=== PATIENT | male | born 1935 | race Caucasian/White ===

== ENCOUNTER 2017-06-17 12:44 | Emergency (ER) | payer OTHER, BC ==
--- NOTE | 2017-06-17 12:55 | PDOC ---
History of Present Illness <Nicolasa Rosario - Last Filed: 06/17/17 14:32> - General History Source: Patient Exam Limitations: No Limitations - History of Present Illness Initial Comments: 06/17/17 14:37 81 year old male, with significant past medical history of Lupus (currently not receiving treatment) and GERD, who presents to the emergency room today complaining of 2 weeks of atraumatic bilateral shoulder pain that is worse with taking a deep breath. He describes the pain as constant, sharp, and stabbing that progressively worsens throughout the day. He notes that the pain is nonexertional and unrelated to movement of the shoulders. He notes that this pain is similar to pain that he has experienced in the past with Lupus flares, however, he has not had a flare in over 3 years. Denies chest pain, SOB, cough. Denies fever, chills, nausea, vomiting Allergies: NKA PMD: Dr. Layton <Mikki Santiago - Last Filed: 06/17/17 14:39> - General Chief Complaint: Pain Stated Complaint: NECK, SHOULDER PAINS Time Seen by Provider: 06/17/17 12:55 Past History - Past Medical History COPD: No Diabetes: No GI Disorders: Yes (GERD) - Suicide/Smoking/Psychosocial Hx Smoking Status: No Smoking History: Former smoker Have you smoked in the past 12 months: No Number of Cigarettes Smoked Daily: 0 Information on smoking cessation initiated: No Hx Alcohol Use: (occasional) <Nicolasa Rosario - Last Filed: 06/17/17 14:32> <Mikki Santiago - Last Filed: 06/17/17 14:39> - Past Medical History Allergies/Adverse Reactions: Allergies Allergy/AdvReac Type Severity Reaction Status Date / Time No Known Allergies Allergy Verified 06/17/17 12:45 Home Medications: Ambulatory Orders Acetaminophen [Tylenol -] 650 mg PO ASDIR 06/17/17 Hydroxyurea [Droxia] 250 mg PO ASDIR 06/17/17 Hydroxyurea [Hydrea] 500 mg PO ASDIR 06/17/17 Ibuprofen 400 mg PO ASDIR 06/17/17 Omeprazole 40 mg PO DAILY 06/17/17 Review of Systems - Review of Systems Able to Perform ROS?: Yes Comments:: 06/17/17 14:37 GENERAL/CONSTITUTIONAL: No fever or chills. No weakness. HEAD, EYES, EARS, NOSE AND THROAT: No change in vision. No ear pain or discharge. No sore throat. GASTROINTESTINAL: No nausea, vomiting, diarrhea or constipation. GENITOURINARY: No dysuria, frequency, or change in urination. CARDIOVASCULAR: No chest pain or shortness of breath. RESPIRATORY: No cough, wheezing, or hemoptysis. MUSCULOSKELETAL: +bilateral shoulder pain x2 weeks. No back pain. SKIN: No rash NEUROLOGIC: No headache, vertigo, loss of consciousness, or change in strength/ sensation. ENDOCRINE: No increased thirst. No abnormal weight change. HEMATOLOGIC/LYMPHATIC: No anemia, easy bleeding, or history of blood clots. ALLERGIC/IMMUNOLOGIC: No hives or skin allergy. <Mikki Santiago - Last Filed: 06/17/17 14:39> *Physical Exam - Vital Signs Last Vital Signs Temp Pulse Resp BP Pulse Ox 97.9 F 72 18 181/94 99 06/17/17 12:44 06/17/17 12:44 06/17/17 12:44 06/17/17 12:44 06/17/17 12:44 <Nicolasa Rosario - Last Filed: 06/17/17 14:32> - Vital Signs Last Vital Signs Temp Pulse Resp BP Pulse Ox 97.9 F 72 18 181/94 99 06/17/17 12:44 06/17/17 12:44 06/17/17 12:44 06/17/17 12:44 06/17/17 12:44 - Physical Exam Comments: 06/17/17 14:38 GENERAL: Awake, alert, and fully oriented, in no acute distress HEAD: No signs of trauma EYES: PERRLA, EOMI, sclera anicteric, conjunctiva clear ENT: Auricles normal inspection, hearing grossly normal, nares patent, oropharynx clear without exudates. Moist mucosa NECK: Normal ROM, supple, no lymphadenopathy, JVD, or masses LUNGS: Breath sounds equal, clear to auscultation bilaterally. No wheezes, and no crackles HEART: Regular rate and rhythm, normal S1 and S2, no murmurs, rubs or gallops ABDOMEN: Soft, nontender, normoactive bowel sounds. No guarding, no rebound. No masses EXTREMITIES: Full ROM of the upper extremities bilaterally. No bony deformities. no edema. No clubbing or cyanosis. No cords, erythema, or tenderness NEUROLOGICAL: Cranial nerves II through XII grossly intact. Normal speech, normal gait SKIN: Warm, Dry, normal turgor, no rashes or lesions noted. <Mikki Santiago - Last Filed: 06/17/17 14:39> ED Treatment Course - LABORATORY CBC & Chemistry Diagram: 06/17/17 13:20 06/17/17 13:20 <Nicolasa Rosario - Last Filed: 06/17/17 14:32> - LABORATORY CBC & Chemistry Diagram: 06/17/17 13:20 06/17/17 13:20 - ADDITIONAL ORDERS Additional order review: Laboratory Results 06/17/17 06/17/17 13:20 13:20 Sodium 132 L Potassium 4.8 Chloride 113 H D Carbon Dioxide 29 H Anion Gap -10 L BUN 19 H Creatinine 0.8 Creat Clearance w eGFR > 60 Random Glucose 102 D Calcium 8.0 L Total Bilirubin 0.4 AST 20 ALT 24 Alkaline Phosphatase 82 D Creatine Kinase 78 Troponin I < 0.03 L Total Protein 6.2 L Albumin 3.5 06/17/17 13:20 RBC 3.89 L MCV 95.4 MCHC 33.9 RDW 11.9 MPV 8.6 Neutrophils % 75.7 Lymphocytes % 13.4 D Monocytes % 9.8 Eosinophils % 0.9 Basophils % 0.2 <Mikki Santiago - Last Filed: 06/17/17 14:39> Medical Decision Making - Medical Decision Making 06/17/17 14:32 Pt presents to the ED complaining of bilateral shoulder pain that has been constant for two weeks. No trauma, no signs of infection, no relation to movement of the shoulders. EKG and cardiac enzymes checked to rule out ACS and are negative. <Nicolasa Rosario - Last Filed: 06/17/17 14:32> *DC/Admit/Observation/Transfer <Nicolasa Rosario - Last Filed: 06/17/17 14:32> - Attestations Scribe Attestion: 06/17/17 14:38 Documentation prepared by LAKHWINDER Lawrence, acting as medical information specialist for Nicolasa Rosario MD. <Mikki Santiago - Last Filed: 06/17/17 14:39> Diagnosis at time of Disposition: Shoulder pain Qualifiers: Chronicity: acute Laterality: bilateral Qualified Code(s): M25.511 - Pain in right shoulder - Discharge Dispostion Disposition: HOME Condition at time of disposition: Good - Referrals Referrals: Hector Layton MD [Primary Care Provider] - - Patient Instructions Printed Discharge Instructions: DI for Shoulder Pain Additional Instructions: return to the ED for severe chest pain or shortness of breath, severe shoulder pain, pain with fever, new or changing symptoms. This may be caused by a new flare of your lupus and your need to be evaluated by Dr. Layton. - Post Discharge Activity
[2017-06-17 13:00] VITALS: TEMP 97.9; BMI 22.3
[2017-06-17 13:57] LABS: ALBUMIN 3.5 g/dl (3.5-5.0); ALK PHOS 82 U/L (32-92); ANION GAP -10 (8-16); BILIRUBIN,TOTAL 0.4 mg/dl (0.2-1.0); CO2 29 mmol/L (22-28); CREATININE 0.8 mg/dl (0.6-1.3); GLUCOSE,RANDOM 102 mg/dl (74-106); SGOT/AST 20 U/L (10-42); SGPT/ALT 24 U/L (10-40); TOT PROT 6.2 g/dl (6.4-8.3)
[2017-06-17 13:58] LABS: CPK 78 IU/L (39-308)
[2017-06-17 14:02] LABS: BASOPHIL 0.2 % (0-2.0); EOSINOPHIL 0.9 % (0-4.5); MCH 32.4 pg (25.7-33.7); MCHC 33.9 g/dl (32.0-35.9); MEAN CELL VOLUME 95.4 fl (80-96); MEAN PLT VOLUME 8.6 fl (7.5-11.1); NEUTROPHILS 75.7 % (42.8-82.8); PLATELET COUNT 617 K/MM3 (134-434); RDW 11.9 % (11.9-15.9)
[2017-06-17 14:28] LABS: TROPONIN I (DFP) < 0.03 ng/ml (0.03-0.50)
[2017-06-17 14:50] VITALS: BP 139/74; PULSE 78
--- NOTE | 2017-06-18 15:56 | EKG ---
Test Reason : Blood Pressure : / mmHG Vent. Rate : 061 BPM Atrial Rate : 061 BPM P-R Int : 164 ms QRS Dur : 094 ms QT Int : 432 ms P-R-T Axes : 066 026 024 degrees QTc Int : 434 ms NORMAL SINUS RHYTHM MINIMAL VOLTAGE CRITERIA FOR LVH, MAY BE NORMAL VARIANT OF INJURY ABNORMAL ECG WHEN COMPARED WITH ECG OF 13-FEB-2017 11:05, PREMATURE ATRIAL COMPLEXES ARE NO LONGER PRESENT ST ELEVATION NOW PRESENT IN INFERIOR LEADS NON-SPECIFIC CHANGE IN ST SEGMENT IN LATERAL LEADS NONSPECIFIC T WAVE ABNORMALITY HAS REPLACED INVERTED T WAVES IN LATERAL LEADS CLINICAL CORRELATION IS RECOMMENDED REPEAT EKG Confirmed by DEBBI LOPEZ MD ([id number]) on 06/18/2017 3:55:45 PM Referred By: MD JARVIS Confirmed By:DEBBI LOPEZ MD
== END 2017-06-17 15:00 | disposition home or self-care (01) ==
LOC: FER 12:44
DX: M25.511 Pain in right shoulder (principal); M32.9 Systemic lupus erythematosus, unspecified; K21.9 Gastro-esophageal reflux disease without esophagitis; Z87.891 Personal history of nicotine dependence
CPT/HCPCS: 36415; 80053; 82550; 84484; 85025; 93005; 99285-25

== ENCOUNTER 2022-02-07 08:22 | Day surgery (SDC) | payer OTHER, BC ==
[2022-01-31 16:14] VITALS: BMI 21.5
[2022-02-07] MEDS ORDERED: BSS (NA/CA/MG/K) BALANCED SALT SOLUTION OPHTH SOLN 15 ML BOTTLE ONE (08:57)
[2022-02-07] MEDS ORDERED: NEO/POLYMYX B SULF/DEXAMETH OPHTHALMIC 5ML BOTTLE ONE (08:57)
[2022-02-07] MEDS ORDERED: TETRACAINE 0.5% OPHTH SOLN 2 ML BOTTLE ONE (08:57)
[2022-02-07] MEDS ORDERED: CARBACHOL 0.01% INTRA-OCULAR 1.5 ML VIAL ONE (08:57)
[2022-02-07] MEDS: PHENYLEPHRINE 2.5% OPHTH SOLN 15 ML BOTTLE ONE ×3 (09:25→09:35)
[2022-02-07] MEDS: CIPROFLOXACIN 0.3% EYE DROPS 5 ML BOTTLE ONE ×3 (09:25→09:35)
[2022-02-07] MEDS: TROPICAMIDE 1% OPHTH SOLN 15 ML BOTTLE ONE ×3 (09:25→09:35)
[2022-02-07] MEDS: CYCLOPENTOLATE 2% OPHTH SOLN 2 ML BOTTLE ONE ×3 (09:25→09:35)
[2022-02-07] MEDS ORDERED: MIDAZOLAM HCL 2 MG/2 ML SINGLE DOSE VIAL ONE (10:30)
[2022-02-07 11:07] VITALS: TEMP 97.6
[2022-02-07 11:51] VITALS: BP 116/74; PULSE 64
== END 2022-02-07 11:35 | disposition home or self-care (01) ==
LOC: FASU 08:22
PROVIDERS: ATTEND Ophthalmology
PROC: 08RK3JZ Replacement of Left Lens with Synthetic Substitute, Percutaneous Approach (ICD-10-PCS; principal; 2022-02-07 10:38)
DX: H26.8 Other specified cataract (principal)
CPT/HCPCS: 66984; V2632

== ENCOUNTER 2022-07-13 07:08 | Inpatient (IN) | payer OTHER, BC ==
[2022-07-13] MEDS ORDERED: SODIUM CHLORIDE 1,000 ML IV STA (07:31)
[2022-07-13] MEDS ORDERED: ONDANSETRON 4 MG/2 ML VIAL IVPUSH ONE (07:31)
[2022-07-13] MEDS ORDERED: MECLIZINE HCL 25 MG TABLET (FP) PO ONE ×2 (07:32→09:26)
[2022-07-13] MEDS ORDERED: ONDANSETRON 4 MG/2 ML VIAL ONE (07:34)
[2022-07-13] MEDS ORDERED: MECLIZINE HCL 25 MG TABLET (FP) ONE ×3 (07:35→09:27)
[2022-07-13 08:21] LABS: HEMATOCRIT 35.8 % (35.4-49); HEMOGLOBIN 12.2 G/dL (11.7-16.9); MCH 33.6 pg (25.7-33.7); MCHC 34.1 g/dl (32.0-35.9); MEAN CELL VOLUME 98.3 fl (80-96); PLATELET COUNT 543.2 10^3/uL (134-434); RBC 3.64 10^6/uL (4.00-5.60); RDW 12.9 % (11.9-15.9); WHITE BLOOD COUNT 9.5 10^3/uL (4.0-10.8)
[2022-07-13 08:23] LABS: ALBUMIN 3.8 g/dl (3.4-5.0); BILIRUBIN,TOTAL 0.9 mg/dl (0.2-1); CALCIUM 8.8 mg/dl (8.5-10); CREATININE 0.7 mg/dl (0.55-1.3); TOT PROT 6.3 g/dl (6.4-8.2)
[2022-07-13 09:05] LABS: PLATELET ESTIMATE INCREASED
[2022-07-13] MEDS ORDERED: LORazepam 2 MG/ML SDV VIAL IVPUSH STA (09:25)
[2022-07-13] MEDS ORDERED: SODIUM CHLORIDE 1,000 ML IV SCH (17:45)
[2022-07-13] MEDS ORDERED: LORATADINE 10 MG TABLET ONE (20:58)
[2022-07-13] MEDS: LORATADINE 10 MG TABLET PO SCH (21:01)
[2022-07-14] MEDS: FLUTICASONE PROP 0.05% 16 GM NASAL SPRAY NS SCH ×3 (08:03→22:53)
[2022-07-14 10:41] LABS: HEMATOCRIT 31.6 % (35.4-49); HEMOGLOBIN 10.9 GM/dL (11.7-16.9); MCH 33.6 pg (25.7-33.7); MCHC 34.7 g/dl (32.0-35.9); MEAN CELL VOLUME 96.9 fl (80-96); MEAN PLT VOLUME 8.4 fl (7.5-11.1); PLATELET COUNT 507 10^3/uL (134-434); RBC 3.26 M/mm3 (4.00-5.60); WHITE BLOOD COUNT 10.4 K/mm3 (4.0-10.0)
[2022-07-14] MEDS: amLODIPine BESYLATE 2.5 MG TABLET (FP) PO SCH (10:50)
[2022-07-14] MEDS: ENOXAPARIN NA (PORCINE) 40 MG/0.4 ML DISP.SYRIN SQ SCH (10:51)
[2022-07-14] MEDS: LORATADINE 10 MG TABLET PO SCH (10:51)
[2022-07-14 12:22] LABS: CALCIUM 8.6 mg/dL (8.5-10.1)
[2022-07-14 12:25] LABS: MAGNESIUM 2.2 mg/dL (1.8-2.4)
[2022-07-14 12:26] LABS: CREATININE 0.7 mg/dL (0.55-1.3)
[2022-07-14 12:28] LABS: PHOSPHOROUS 2.6 mg/dL (2.5-4.9)
[2022-07-14 12:33] LABS: BLOOD UREA NITROGEN 18.2 mg/dL (7-18)
[2022-07-14] MEDS ORDERED: ONDANSETRON 4 MG/2 ML VIAL IVPUSH PRN (12:34)
[2022-07-15] MEDS: MECLIZINE HCL 12.5 MG TABLET PO PRN ×2 (01:02→22:47)
[2022-07-15] MEDS: amLODIPine BESYLATE 2.5 MG TABLET (FP) PO SCH ×2 (01:35→09:47)
[2022-07-15] MEDS ORDERED: ACETAMINOPHEN 325 MG TABLET (FP) PO ONE (05:55)
[2022-07-15 08:13] LABS: HEMATOCRIT 32.5 % (35.4-49); HEMOGLOBIN 11.2 GM/dL (11.7-16.9); MCHC 34.4 g/dl (32.0-35.9); MEAN CELL VOLUME 95.9 fl (80-96); MEAN PLT VOLUME 7.9 fl (7.5-11.1); PLATELET COUNT 520 10^3/uL (134-434); RBC 3.39 M/mm3 (4.00-5.60); RDW 12.8 % (11.9-15.9); WHITE BLOOD COUNT 11.9 K/mm3 (4.0-10.0)
[2022-07-15 08:55] LABS: CALCIUM 8.9 mg/dL (8.5-10.1)
[2022-07-15 08:56] LABS: BLOOD UREA NITROGEN 14.8 mg/dL (7-18); MAGNESIUM 2.2 mg/dL (1.8-2.4)
[2022-07-15 08:59] LABS: CREATININE 0.7 mg/dL (0.55-1.3)
[2022-07-15] MEDS: LORATADINE 10 MG TABLET PO SCH (09:46)
[2022-07-15] MEDS: FLUTICASONE PROP 0.05% 16 GM NASAL SPRAY NS SCH ×2 (09:46→22:47)
[2022-07-15] MEDS: ENOXAPARIN NA (PORCINE) 40 MG/0.4 ML DISP.SYRIN SQ SCH (09:47)
[2022-07-15] MEDS: POLYETHYLENE GLYCOL (HEALTHYLAX) 3350 17 GM PACKET PO SCH (12:18)
[2022-07-16] MEDS: amLODIPine BESYLATE 2.5 MG TABLET (FP) PO SCH (10:09)
[2022-07-16] MEDS: LORATADINE 10 MG TABLET PO SCH (10:09)
[2022-07-16] MEDS: MECLIZINE HCL 12.5 MG TABLET PO PRN (10:10)
[2022-07-16] MEDS: POLYETHYLENE GLYCOL (HEALTHYLAX) 3350 17 GM PACKET PO SCH (10:10)
[2022-07-16] MEDS: ENOXAPARIN NA (PORCINE) 40 MG/0.4 ML DISP.SYRIN SQ SCH (10:10)
[2022-07-16] MEDS: FLUTICASONE PROP 0.05% 16 GM NASAL SPRAY NS SCH ×2 (10:10→21:58)
[2022-07-16 10:15] LABS: BASO % 0.4 % (0-2.0); EOS % 0.8 % (0-4.5); HEMATOCRIT 35.7 % (35.4-49); HEMOGLOBIN 12.2 GM/dL (11.7-16.9); LYMPH % 18.3 % (8-40); MCH 32.9 pg (25.7-33.7); MCHC 34.3 g/dl (32.0-35.9); MEAN CELL VOLUME 95.9 fl (80-96); MEAN PLT VOLUME 8.1 fl (7.5-11.1); MONO % 7.7 % (3.8-10.2); NEUT % 72.8 % (42.8-82.8); PLATELET COUNT 648 10^3/uL (134-434); RBC 3.73 M/mm3 (4.00-5.60); RDW 12.9 % (11.9-15.9); WHITE BLOOD COUNT 13.3 K/mm3 (4.0-10.0)
[2022-07-16 10:47] LABS: CHOLESTEROL 152 mg/dL (50-200); TRIGLYCERIDES 118 mg/dL (0-150)
[2022-07-16 10:48] LABS: LDL CHOLESTEROL (ONLY SJRH) 87 mg/dL (5-100)
[2022-07-16 10:50] LABS: HDL CHOLESTEROL 53 mg/dL (40-60)
[2022-07-16 11:05] LABS: CALCIUM 8.9 mg/dL (8.5-10.1)
[2022-07-16 11:06] LABS: ALBUMIN 3.2 g/dl (3.4-5.0); BLOOD UREA NITROGEN 12.8 mg/dL (7-18); MAGNESIUM 2.2 mg/dL (1.8-2.4)
[2022-07-16 11:09] LABS: CREATININE 0.8 mg/dL (0.55-1.3); PHOSPHOROUS 3.3 mg/dL (2.5-4.9)
[2022-07-16 11:11] LABS: BILIRUBIN,TOTAL 0.6 mg/dL (0.2-1); TOT PROT 5.7 g/dl (6.4-8.2)
[2022-07-16] MEDS: SENNOSIDES 8.6MG TABLET (FP) PO SCH (21:58)
[2022-07-17 09:14] LABS: HEMATOCRIT 37.5 % (35.4-49); HEMOGLOBIN 12.7 GM/dL (11.7-16.9); MCHC 33.8 g/dl (32.0-35.9); MEAN CELL VOLUME 97.8 fl (80-96); PLATELET COUNT 670 10^3/uL (134-434); RBC 3.84 M/mm3 (4.00-5.60); RDW 13.2 % (11.9-15.9); WHITE BLOOD COUNT 17.3 K/mm3 (4.0-10.0)
[2022-07-17 09:36] LABS: CALCIUM 9.3 mg/dL (8.5-10.1)
[2022-07-17 09:37] LABS: ALBUMIN 3.3 g/dl (3.4-5.0); BLOOD UREA NITROGEN 19.4 mg/dL (7-18); MAGNESIUM 2.5 mg/dL (1.8-2.4)
[2022-07-17 09:39] LABS: CREATININE 0.9 mg/dL (0.55-1.3)
[2022-07-17 09:40] LABS: PHOSPHOROUS 4.3 mg/dL (2.5-4.9)
[2022-07-17 09:41] LABS: BILIRUBIN,TOTAL 0.6 mg/dL (0.2-1); TOT PROT 5.8 g/dl (6.4-8.2)
[2022-07-17] MEDS: amLODIPine BESYLATE 2.5 MG TABLET (FP) PO SCH ×2 (10:49→10:56)
[2022-07-17] MEDS: POLYETHYLENE GLYCOL (HEALTHYLAX) 3350 17 GM PACKET PO SCH ×2 (10:50→10:56)
[2022-07-17 11:41] LABS: ANISOCYTOSIS 0; HELMET CELLS 0; HOWELL-JOLLY BODIES 0; MACROCYTOSIS 0; OVALOCYTE 0; ROULEAU 0; SICKELED CELLS 0; TARGET CELLS 0; TEAR DROP CELLS 0; TOXIC GRANULATION 0
[2022-07-17] MEDS ORDERED: DEXTROSE 50%-WATER - 25 GM/50 ML VIAL IVPUSH ONE (12:15)
[2022-07-17] MEDS ORDERED: DEXTROSE 50%-WATER 25 GM/50 ML DISP.SYRIN IVPUSH ONE (12:15)
[2022-07-17] MEDS ORDERED: INSULIN REGULAR HUMAN 100 UNITS/ML *VIAL IVPUSH ONE (12:30)
[2022-07-17] MEDS ORDERED: SODIUM ZIRCONIUM CYCLOSILICATE (LOKELMA) 5 GM PACKET PO ONE (12:30)
[2022-07-17] MEDS: SENNOSIDES 8.6MG TABLET (FP) PO SCH (21:56)
[2022-07-18 09:49] LABS: HEMATOCRIT 35.9 % (35.4-49); HEMOGLOBIN 12.1 GM/dL (11.7-16.9); MCH 32.9 pg (25.7-33.7); MCHC 33.8 g/dl (32.0-35.9); MEAN CELL VOLUME 97.2 fl (80-96); PLATELET COUNT 645 10^3/uL (134-434); RBC 3.69 M/mm3 (4.00-5.60); RDW 13.3 % (11.9-15.9); WHITE BLOOD COUNT 16.8 K/mm3 (4.0-10.0)
[2022-07-18] MEDS: POLYETHYLENE GLYCOL (HEALTHYLAX) 3350 17 GM PACKET PO SCH (09:55)
[2022-07-18] MEDS: amLODIPine BESYLATE 2.5 MG TABLET (FP) PO SCH (09:55)
[2022-07-18 10:05] LABS: ALBUMIN 3.3 g/dl (3.4-5.0); CALCIUM 8.9 mg/dL (8.5-10.1); MAGNESIUM 2.4 mg/dL (1.8-2.4)
[2022-07-18 10:06] LABS: BLOOD UREA NITROGEN 21.2 mg/dL (7-18)
[2022-07-18 10:08] LABS: CREATININE 0.8 mg/dL (0.55-1.3); PHOSPHOROUS 3.5 mg/dL (2.5-4.9)
[2022-07-18 10:10] LABS: BILIRUBIN,TOTAL 0.7 mg/dL (0.2-1); TOT PROT 5.8 g/dl (6.4-8.2)
[2022-07-18 11:36] LABS: ANISOCYTOSIS 0; HELMET CELLS 0; HOWELL-JOLLY BODIES 0; MACROCYTOSIS 0; OVALOCYTE 0; ROULEAU 0; SICKELED CELLS 0; TARGET CELLS 0; TEAR DROP CELLS 0; TOXIC GRANULATION 0
[2022-07-18 16:46] LABS: EPI CELLS 1 /uL (0-25.1); HYALINE CASTS 0 /uL (0-3.1); URINE APPEARANCE CLOUDY; URINE BACTERIA >9,000 /uL (0-1359); URINE BILIRUBIN NEGATIVE (NEGATIVE); URINE COLOR YELLOW; URINE GLUCOSE (UA) NEGATIVE (NEGATIVE); URINE KETONE NEGATIVE (NEGATIVE); URINE LEUK ESTERASE 3+ (NEGATIVE); URINE NITRITE NEGATIVE (NEGATIVE); URINE PROTEIN TRACE (NEGATIVE); URINE RBC 80 /uL (0-23.9); URINE WBC 2943 /uL (0-25.8)
[2022-07-18] MEDS: SENNOSIDES 8.6MG TABLET (FP) PO SCH (21:42)
[2022-07-19] MEDS ORDERED: ARTIFICIAL TEARS (POLYVINYL ALCOHOL) OPTH DROPS OU ONE (01:18)
[2022-07-19] MEDS ORDERED: MELATONIN 5 MG TABLETS PO ONE (01:45)
[2022-07-19 09:29] LABS: HEMATOCRIT 36.3 % (35.4-49); HEMOGLOBIN 12.3 GM/dL (11.7-16.9); MCH 32.9 pg (25.7-33.7); MCHC 33.8 g/dl (32.0-35.9); MEAN CELL VOLUME 97.3 fl (80-96); MEAN PLT VOLUME 8.3 fl (7.5-11.1); PLATELET COUNT 609 10^3/uL (134-434); RBC 3.73 M/mm3 (4.00-5.60); RDW 13.2 % (11.9-15.9); WHITE BLOOD COUNT 16.1 K/mm3 (4.0-10.0)
[2022-07-19 10:03] LABS: ALBUMIN 3.2 g/dl (3.4-5.0); BLOOD UREA NITROGEN 21.3 mg/dL (7-18); MAGNESIUM 2.4 mg/dL (1.8-2.4)
[2022-07-19 10:05] LABS: CREATININE 0.8 mg/dL (0.55-1.3)
[2022-07-19 10:06] LABS: PHOSPHOROUS 3.7 mg/dL (2.5-4.9)
[2022-07-19 10:07] LABS: BILIRUBIN,TOTAL 0.6 mg/dL (0.2-1); TOT PROT 5.9 g/dl (6.4-8.2)
[2022-07-19 10:47] LABS: ANISOCYTOSIS 0; HELMET CELLS 0; HOWELL-JOLLY BODIES 0; MACROCYTOSIS 0; OVALOCYTE 0; ROULEAU 0; SICKELED CELLS 0; TARGET CELLS 0; TEAR DROP CELLS 0; TOXIC GRANULATION 0
[2022-07-19] MEDS: POLYETHYLENE GLYCOL (HEALTHYLAX) 3350 17 GM PACKET PO SCH (11:13)
[2022-07-19] MEDS: amLODIPine BESYLATE 2.5 MG TABLET (FP) PO SCH (11:13)
[2022-07-19] MEDS: CEFTRIAXONE 1 GM in DEXTROSE 5%-WATER - 50 ML IVPB SCH (19:38)
[2022-07-19] MEDS: SENNOSIDES 8.6MG TABLET (FP) PO SCH (21:21)
[2022-07-20 10:40] LABS: HEMATOCRIT 37.2 % (35.4-49); HEMOGLOBIN 12.5 GM/dL (11.7-16.9); MCH 32.7 pg (25.7-33.7); MCHC 33.6 g/dl (32.0-35.9); MEAN CELL VOLUME 97.4 fl (80-96); MEAN PLT VOLUME 8.4 fl (7.5-11.1); PLATELET COUNT 678 10^3/uL (134-434); RBC 3.82 M/mm3 (4.00-5.60); RDW 12.8 % (11.9-15.9); WHITE BLOOD COUNT 17.1 K/mm3 (4.0-10.0)
[2022-07-20 11:20] LABS: ALBUMIN 3.5 g/dl (3.4-5.0); BLOOD UREA NITROGEN 21.5 mg/dL (7-18); CALCIUM 8.9 mg/dL (8.5-10.1)
[2022-07-20 11:21] LABS: MAGNESIUM 2.4 mg/dL (1.8-2.4)
[2022-07-20 11:23] LABS: BILIRUBIN,TOTAL 0.7 mg/dL (0.2-1); CREATININE 0.8 mg/dL (0.55-1.3); PHOSPHOROUS 3.4 mg/dL (2.5-4.9); TOT PROT 6.2 g/dl (6.4-8.2)
[2022-07-20] MEDS: amLODIPine BESYLATE 2.5 MG TABLET (FP) PO SCH (12:19)
[2022-07-20] MEDS: POLYETHYLENE GLYCOL (HEALTHYLAX) 3350 17 GM PACKET PO SCH (12:19)
[2022-07-20] MEDS: CEFTRIAXONE 1 GM in DEXTROSE 5%-WATER - 50 ML IVPB SCH (12:20)
[2022-07-20] MEDS: SENNOSIDES 8.6MG TABLET (FP) PO SCH (21:14)
[2022-07-21] MEDS ORDERED: ONDANSETRON 4 MG/2 ML VIAL IVPUSH PRN (06:54)
[2022-07-21 07:17] LABS: HEMATOCRIT 36.1 % (35.4-49); HEMOGLOBIN 12.1 GM/dL (11.7-16.9); MCH 32.3 pg (25.7-33.7); MCHC 33.4 g/dl (32.0-35.9); MEAN CELL VOLUME 96.8 fl (80-96); MEAN PLT VOLUME 8.4 fl (7.5-11.1); PLATELET COUNT 603 10^3/uL (134-434); RBC 3.73 M/mm3 (4.00-5.60); RDW 12.9 % (11.9-15.9); WHITE BLOOD COUNT 14.7 K/mm3 (4.0-10.0)
[2022-07-21 07:26] LABS: CALCIUM 8.8 mg/dL (8.5-10.1)
[2022-07-21 07:27] LABS: ALBUMIN 3.2 g/dl (3.4-5.0); BLOOD UREA NITROGEN 23.5 mg/dL (7-18); MAGNESIUM 2.2 mg/dL (1.8-2.4)
[2022-07-21 07:30] LABS: CREATININE 0.8 mg/dL (0.55-1.3)
[2022-07-21 07:31] LABS: BILIRUBIN,TOTAL 0.5 mg/dL (0.2-1); TOT PROT 5.7 g/dl (6.4-8.2)
[2022-07-21 09:42] LABS: ANISOCYTOSIS 0; MACROCYTOSIS 0
[2022-07-21] MEDS: CEFTRIAXONE 1 GM in DEXTROSE 5%-WATER - 50 ML IVPB SCH (09:42)
[2022-07-21] MEDS: POLYETHYLENE GLYCOL (HEALTHYLAX) 3350 17 GM PACKET PO SCH (09:42)
[2022-07-21] MEDS: amLODIPine BESYLATE 2.5 MG TABLET (FP) PO SCH (09:42)
[2022-07-21 16:11] VITALS: BMI 21.8
[2022-07-21] MEDS: SENNOSIDES 8.6MG TABLET (FP) PO SCH (21:28)
[2022-07-22 08:34] LABS: HEMATOCRIT 36.8 % (35.4-49); HEMOGLOBIN 12.3 GM/dL (11.7-16.9); MCH 32.4 pg (25.7-33.7); MCHC 33.3 g/dl (32.0-35.9); MEAN CELL VOLUME 97.2 fl (80-96); MEAN PLT VOLUME 8.7 fl (7.5-11.1); PLATELET COUNT 619 10^3/uL (134-434); RBC 3.79 M/mm3 (4.00-5.60); WHITE BLOOD COUNT 13.2 K/mm3 (4.0-10.0)
[2022-07-22 09:05] LABS: ALBUMIN 3.4 g/dl (3.4-5.0); BLOOD UREA NITROGEN 25.3 mg/dL (7-18)
[2022-07-22 09:08] LABS: CREATININE 0.9 mg/dL (0.55-1.3)
[2022-07-22 09:15] LABS: BILIRUBIN,TOTAL 0.8 mg/dL (0.2-1)
[2022-07-22] MEDS ORDERED: ARTIFICIAL TEARS (POLYVINYL ALCOHOL) OPTH DROPS OU PRN (09:36)
[2022-07-22 09:52] LABS: ANISOCYTOSIS 0; MACROCYTOSIS 0
[2022-07-22] MEDS: CEFTRIAXONE 1 GM in DEXTROSE 5%-WATER - 50 ML IVPB SCH (10:05)
[2022-07-22] MEDS: POLYETHYLENE GLYCOL (HEALTHYLAX) 3350 17 GM PACKET PO SCH (10:06)
[2022-07-22] MEDS: amLODIPine BESYLATE 2.5 MG TABLET (FP) PO SCH (10:06)
[2022-07-22] MEDS: SENNOSIDES 8.6MG TABLET (FP) PO SCH (21:23)
[2022-07-23 06:12] VITALS: RESP 18; TEMP 97.9
[2022-07-23] MEDS: amLODIPine BESYLATE 2.5 MG TABLET (FP) PO SCH (10:34)
[2022-07-23] MEDS: POLYETHYLENE GLYCOL (HEALTHYLAX) 3350 17 GM PACKET PO SCH (10:34)
[2022-07-23 12:33] VITALS: BP 141/65; PULSE 61
== END 2022-07-23 12:59 | disposition home or self-care (01) | DRG 64 ==
LOC: FER 07:08 → J8W 17:36 → OBSVTOIN 07-15 11:03 → J5S 07-16 19:03 → J6W 07-17 14:32 → J4S 07-20 21:28
PROVIDERS: ADMIT Psychiatry & Neurology Neurology
DX: I61.9 Nontraumatic intracerebral hemorrhage, unspecified (principal); G93.6 Cerebral edema; U07.1 COVID-19; H81.23 Vestibular neuronitis, bilateral; I10 Essential (primary) hypertension; M32.9 Systemic lupus erythematosus, unspecified; I25.10 Atherosclerotic heart disease of native coronary artery without angina pectoris; D47.3 Essential (hemorrhagic) thrombocythemia; K21.9 Gastro-esophageal reflux disease without esophagitis; M19.90 Unspecified osteoarthritis, unspecified site; R26.0 Ataxic gait; R26.2 Difficulty in walking, not elsewhere classified; E86.0 Dehydration; K59.00 Constipation, unspecified
CPT/HCPCS: 0241U-QW; 36415; 70450-TC; 70545-TC; 70551-TC; 70552-TC; 71045-TC-FY; 80048; 80053; 80061; 81003; 82306; 82607; 82746; 83036; 83735; 84100; 84132; 84443; 84484; 85025; 85027; 87040; 93005; 97116-GP; 97162-GP; 99285-25; A9579; G0378